=== PATIENT | female | born 1995 | race Two or more races ===

== ENCOUNTER 2025-08-18 20:54 | Observation (INO) | payer MEDICAID ==
[~2025-08-18] VITALS: Ht 160 cm; Wt 69.4 kg
--- NOTE | 2025-08-18 23:17 | DVHDS2 ---
Physician Discharge Progress N Final Diagnosis: False Labor Problems List: (1) 39 weeks gestation of (2) Primigravida (3) Irregular contractions Commentary: Commentary 08/18/2025 Subjective 30 y/o ,(0,0,0,0,) with IUP 36w0d presents to birthplace with contractions. LMP: 11/18/2024 SRAVAN: 08/25/2025 Reports normal movements, no LOF, or vaginal bleeding, no WOOD or vision changes. States she receives care with Dr Wheeler PMH: No h/o chronic condition, no surgery OB Hist: (0000) G#1 Current SOCIAL HISTORY: Denies any tobacco, alcohol or drug use. FAMILY HISTORY: Noncontributory. Objective REVIEW OF SYSTEM Constitutional: No symptom reported Ears, Nose, & Throat: No symptom reported Eyes: No symptom reported Pulmonary/Respiratory: No symptom reported Cardiovascular: No symptom reported Gastrointestinal: No symptom reported Genitourinary: No symptom reported Musculoskeletal: No symptom reported Skin: No symptom reported Psychiatric: No symptom reported Endocrine: No symptom reported Hematologic/Lymphatic: No symptom reported SVE : -3 Tracing FHR : 125 Varaibility : moderate Accels : 15 bpm X 15bpm Decel's : none noted Uterine: palpated soft and non tender Contractions : Every 6-10 min Assessment (0,0,0,0) 39w0d IUP Ambulate for one hour P.O hydration Reassessment @ 2300 SVE no cervical change Patient desires to go home Plan D/C to home in stable conditions False labor Discharge patient to home Follow up with your OB Provider within 24 hours Pt advised to go to ER if pain persists or increases in intensity 3rd trimester emergency S&S FMC, PTL & pre-eclampsia precautions reviewed with pt; advised to seek health care if any symptom including but not limited to any of the above. Condition on Discharge: Stable Disposition: Home Discharge Instructions: Diet: Regular Activity: No Restrictions, As Tolerated Medications: PNV Follow Up Care: Primary Care Provider: Dr Wheeler Discharge Statement: Discharge patient to home Follow up with your OB Provider within 24 hours Pt advised to go to ER if pain persists or increases in intensity Discharge Care Plan Problem Pain Goals Pain relieved, Reduction of pain Know Disease Process Initiate lifestyle change Remain free of infection Instructions Take Rx medications See pt D/C handouts Risk factors Visit Coding OBGYN Date of Service: Aug 18, 2025 Billing Provider: VIRGINIA RUIZ CNM TRAFFIC CLERK Common Visit Codes: [id number] CARE DISCHARGE, [id number] OBS CARE (HIGH) [facility] 23:17
== END 2025-08-18 23:11 | disposition home or self-care (01) ==
LOC: LDRP 20:54
PROVIDERS: ADMIT Obstetrics & Gynecology; ATTEND Obstetrics & Gynecology
DX: O62.9 Abnormality of forces of labor, unspecified (principal); Z3A.39 39 weeks gestation of pregnancy; Z79.899 Other long term (current) drug therapy; Z98.890 Other specified postprocedural states
CPT/HCPCS: 59025; 81002; 94760; G0378

== ENCOUNTER 2025-08-20 07:10 | Inpatient (IN) | payer MEDICAID ==
[~2025-08-20] VITALS: Ht 167.6 cm; Wt 69.4 kg
[2025-08-20] MEDS: LACTATED RINGER'S 1,000 ML IV ONE (08:15)
[2025-08-20 08:36] LABS: Hematocrit 37.2 % (36.0-46.0); Hemoglobin 12.6 g/dL (12.2-16.2); Mean Corpuscular Hemoglobin 28.4 pg (28.0-32.0); Mean Corpuscular Volume 84.2 fL (80.0-100.0); Nucleated Red Blood Cells % 0.2 %
[2025-08-20 08:40] LABS: Albumin 3.8 g/dL (3.2-4.8); Anion Gap 13 (5-15); BUN/Creatinine Ratio 11.9 (10.0-20.0); Calcium 9.2 mg/dL (8.7-10.4); Carbon Dioxide 20 mmol/L (20-31); Glucose 80 mg/dL (74-106); Potassium 3.7 mmol/L (3.5-5.1); Sodium 141 mmol/L (136-145); Total Protein 6.7 g/dL (5.7-8.2)
[2025-08-20 08:41] LABS: Bilirubin, Total 0.7 mg/dL (0.2-1.0); INR 0.92 (0.9-1.15); Partial Thromboplastin Time 25.8 SEC (24.5-34.5); Prothrombin Time 9.8 sec (9.3-11.8)
[2025-08-20 08:42] LABS: Alanine Aminotransferase 9 U/L (7-40); Alkaline Phosphatase 205 U/L (46-116); Blood Urea Nitrogen 7 mg/dL (9-23); Chloride 108 mmol/L (98-107)
--- NOTE | 2025-08-20 08:46 | DVH ---
BIOPHYSICAL PROFILE HISTORY: contractions TECHNIQUE: Multiple transabdominal real-time grayscale sonographic images through the gravid uterus of the fetus with duplex Doppler color flow and M-mode spectral analysis FINDINGS: BIOPHYSICAL PROFILE: breathing score: 2 movement score: 2 tone score: 2 Quantitative MARLENY score: 2 (MARLENY: 8 Cm.) Total score: 8 The cervix was not seen Single live fetus in cephalic presentation. heart rate 116 beats per minute. Grade II posterior placenta without previa or abruption IMPRESSION: Biophysical profile score: 8/8
[2025-08-20] MEDS: ROPIVACAINE HCL 100 ML ONE ×2 (09:26→16:51)
[2025-08-20] MEDS: PHISODERM TOP SOLN 240ML BTL TOP PRN (10:40)
[2025-08-20] MEDS: WITCH HAZEL-GLYCERIN PAD TOP PRN (10:40)
[2025-08-20] MEDS: DERMOPLAST 60ML BOTTLE TOP PRN (10:40)
[2025-08-20] MEDS: LACTATED RINGER'S 1,000 ML IV SCH (10:41)
--- NOTE | 2025-08-20 10:41 | DVHHP ---
ADMIT DATE: 08/20/2025 CHIEF COMPLAINT: Ruptured membrane. HISTORY OF PRESENT ILLNESS: The patient is a 30-year-old 1 para 0, with EDC 08/23/2025. Estimated gestational age of 39 weeks. Admitted for spontaneous rupture of membranes. The patient was noted to be 3 cm, 90%, -2. Shortly after, she became 5 cm, 100%, -2. Last EFW by Dr. Vitale was 2949 plus or minus 400. PAST MEDICAL HISTORY: None. PAST SURGICAL HISTORY: None. SOCIAL HISTORY: None. FAMILY HISTORY: None. OBSTETRIC AND GYNECOLOGIC HISTORY: Primi 1. ALLERGIES: No known drug allergies. REVIEW OF SYSTEMS: Consistent with HPI. PHYSICAL EXAMINATION: VITAL SIGNS: Stable, afebrile. HEENT: Within normal limits. CARDIOVASCULAR: Regular rate and rhythm. LUNGS: Clear to auscultation. BREASTS: Symmetrical, no masses. ABDOMEN: Gravid. Positive heart tones. PELVIC: 5 cm, 100%, -2. Grossly ruptured. Clear fluid. EXTREMITIES: No clubbing, cyanosis, or edema. IMPRESSION: Intrauterine at 39+ weeks with spontaneous rupture of membranes. PLAN: Informed consent obtained. Expectant vaginal delivery. May start Pitocin. Pema Wheeler DO MZ/EKT TID: [id number] RECEIPT: [id number]
[2025-08-20 11:06] LABS: Urine Protein, UAD Negative (Negative)
[2025-08-20 11:21] LABS: Amphetamine Screen, Urine Neg (NEGATIVE); Barbiturate Scree,Urine Neg (NEGATIVE); Benzodiazephine Screen, Urine Neg (NEGATIVE); Cannabinoid Screen, Urine Neg (NEGATIVE); Cocaine Screen, Urine Neg (NEGATIVE); Opiate Scree,Urine Neg (NEGATIVE); Phencyclidine Screen, Urine Neg (NEGATIVE)
--- NOTE | 2025-08-20 12:28 | DVHPN2 ---
Chief Complaints Patient reports: No new complaints Nursing reports: No new complaints Objective Medications Current Medications Medications (Trade) Dose Ordered Sig/Ab Route PRN Reason Start Time Stop Time Status Last Admin Benzocaine (Dermoplast) 1 applic PRN PRN TOP PERINEAL AREA DISCOMFORT 08/20/25 07:30 08/20/25 10:40 Lactated Ringer's 1,000 ml @ 125 mls/hr Q8H IV 08/20/25 07:30 08/20/25 10:41 Lidocaine HCl (Xylocaine) 20 ml ONCE PRN IJ PERINEAL AREA DISCOMFORT 08/20/25 07:30 Oxytocin 1,000 ml @ 6 ml/hr Q24H IV 08/20/25 10:30 Sodium Lauryl Sulfate (Phisoderm) 240 ml PRN PRN TOP PERINEAL AREA DISCOMFORT 08/20/25 07:30 08/20/25 10:40 Witch Shirley (Tucks) 1 pad PRN PRN TOP PERINEAL AREA DISCOMFORT 08/20/25 07:30 08/20/25 10:40 Others ve - 5cm/90/-1 Studies Laboratory Tests 08/20/25 08:00 Test 08/20/25 08:00 Range/Units Serum Glucose 80 74-106 mg/dL Ass/Plan Assessment iup at 39wks in labor gest thrombocytopenia Plan start ancef Visit Coding OBGYN Date of Service: Aug 20, 2025 Billing Provider: TAN RODRIGUEZ DO OUTREACH ASSOCIATE Common Visit Codes: [id number] OBS CARE (HIGH) OUTREACH ASSOCIATE Procedure Codes: 73398-10- NON-STRESS TEST TAN RODRIGUEZ DO Aug 20, 2025 12:28
[2025-08-20] MEDS: ceFAZolin 2 GM/D5W50ml 50 ML IV SCH (13:44)
[2025-08-20] MEDS: LACT. RINGERS/OXYTOCIN 20UNITS 1,000 ML IV SCH (14:07)
--- NOTE | 2025-08-20 15:25 | DVHPN2 ---
Chief Complaints Patient reports: No new complaints Nursing reports: No new complaints Objective Medications Current Medications Medications (Trade) Dose Ordered Sig/Ab Route PRN Reason Start Time Stop Time Status Last Admin Benzocaine (Dermoplast) 1 applic PRN PRN TOP PERINEAL AREA DISCOMFORT 08/20/25 07:30 08/20/25 10:40 Cefazolin Sodium/ Dextrose 50 ml @ 50 mls/hr Q8HR IV 08/20/25 14:00 08/20/25 13:44 Lactated Ringer's 1,000 ml @ 125 mls/hr Q8H IV 08/20/25 07:30 08/20/25 10:41 Lidocaine HCl (Xylocaine) 20 ml ONCE PRN IJ PERINEAL AREA DISCOMFORT 08/20/25 07:30 Oxytocin 1,000 ml @ 6 ml/hr Q24H IV 08/20/25 10:30 08/20/25 14:07 Sodium Lauryl Sulfate (Phisoderm) 240 ml PRN PRN TOP PERINEAL AREA DISCOMFORT 08/20/25 07:30 08/20/25 10:40 Lesly Watson ([place]) 1 pad PRN PRN TOP PERINEAL AREA DISCOMFORT 08/20/25 07:30 08/20/25 10:40 Others ve-8cm/80.-1 Studies Laboratory Tests 08/20/25 08:00 Test 08/20/25 08:00 Range/Units Serum Glucose 80 74-106 mg/dL Ass/Plan Assessment iup at 39wks in labor gest thrombocytopenia Plan cont [facility] Visit Coding OBGYN Date of Service: Aug 20, 2025 Billing Provider: TAN RODRIGUEZ DO CIAIO LUMITE INJECTOR Common Visit Codes: [id number] OBS CARE (HIGH) CIAIO LUMITE INJECTOR Procedure Codes: 61061-45- NON-STRESS TEST TAN RODRIGUEZ DO Aug 20, 2025 15:25
[2025-08-20] MEDS ORDERED: GENTAMICIN PER PHARMACY 0 ML IV SCH (17:15)
[2025-08-20] MEDS: ACETAMINOPHEN 325 MG TAB PO PRN (17:28)
[2025-08-20] MEDS ORDERED: GENTAMICIN SULFATE 320 MG in D5W 5% 100 ML IV ONE (17:30)
[2025-08-20] MEDS ORDERED: GENTAMICIN SULFATE 320 MG in D5W 5% 100 ML IV SCH (17:30)
[2025-08-20] MEDS: AMPICILLIN SOD 2GM INJ 2 GM in SODIUM CHL 0.9% 100 ML IV SCH (18:28)
[2025-08-20] MEDS: GENTAMICIN SULFATE 320 MG in D5W 5% 100 ML IV SCH (20:46)
[2025-08-21] MEDS ORDERED: ceFAZolin 2 GM/D5W50ml 50 ML IV ONE (00:15)
[2025-08-21] MEDS: METHYLERGONOVINE MALEATE 0.2 MG/ML AMP IM ONE ×3 (00:28→01:19)
[2025-08-21] MEDS: DIPHENOXYLATE W/ATROPINE 2.5 MG TAB ONE (00:41)
[2025-08-21] MEDS: ONDANSETRON HCL 4 MG/2 ML VIAL ONE (00:41)
--- NOTE | 2025-08-21 00:55 | LDN2 ---
Labor and Delivery Note Date 08/21/25 Age 30 1 Para 1 EDC 1-27 EGA 39wks Diagnosis labor,srom,39wks Vaginal Delivery: VTX Vacuum Assisted: Yes Placenta: Spontaneous Sex: Male Apgars 8-9 Nuchal Cord Transected: No Amniotic Fluid: Clear Anesthesia epidural Episiotomy: No Repaired with 2-0 chromic EBL 300ml Labs Blood Bank 08/20/25 08:00: Blood Type O POSITIVE Complications none Conditions stable Comments/Significant Med Dominick spec exam no cxal lac uterine atony noted which responded to hemobatex1,methergine and cytotec vaccum applied after permission obtanied due to poor pushing effort and delivered baby successfully Visit Coding OBGYN Date of Service: Aug 21, 2025 Billing Provider: TAN RODRIGUEZ DO BOOKMAKER'S CLERK Common Visit Codes: [id number] OBS CARE (HIGH) BOOKMAKER'S CLERK Procedure Codes: [id number] DELIVERY ONLY TAN RODRIGUEZ DO Aug 21, 2025 00:55
[2025-08-21] MEDS: DIPHENOXYLATE W/ATROPINE 2.5 MG TAB PO ONE (01:18)
[2025-08-21] MEDS: ONDANSETRON HCL 4 MG/2 ML VIAL IV PRN (01:18)
[2025-08-21] MEDS: LIDOCAINE 2%HCL (LOCAL ANESTH.) INJ 20ML MDV IJ PRN (01:21)
--- NOTE | 2025-08-21 01:23 | DVHPN2 ---
CNM Labor Progress Note Date and Time Seen Date Seen: Aug 20, 2025 Time Seen: 20:00 Subjective Subjective Comment *Late entry due to patient care. Mary Davila is a at 39w5d who is in the second stage of labor. She is comfortable with her epidural. [id number]: CNM and primary RN pushing with patient. She states she is not feeling the urge to push anymore. Decision made with patient to labor down to allow baby and Mom more time to rest [id number]: CNM and primary RN resume pushing with patient. See CPN for notes on position changes and interventions. Patient declares that she is done pushing and wants a section. Objective Vital Signs VSS. See CPN Monitoring Method Monitoring Method: External Heart Rate Heart Rate Baseline: 150 Heart Rate Variability: Moderate Presence of FHR Accelerations: Yes Presence of FHR Decelerations: Yes Heart Rate Type of Decel: Late Decelerations Comment on Trends or Patterns: cat 2 Contractions Contractions Frequency: Other (every 2-4 minutes) Contractions Intensity: Moderate Contractions Resting Tone: Relaxed Membranes Membranes: Ruptured Amniotic Fluid Color: Clear Vaginal Exam Vag Exam Deferred: No Medications Medications - Pitocin: Yes Medication - Epidural: Yes Lab Results Lab Results Vital Signs Date Time Temp Pulse Resp B/P (MAP) Pulse Ox O2 Delivery O2 Flow Rate FiO2 08/20/25 17:28 100.0 Current Medications Medications (Trade) Dose Ordered Sig/Ab Start Time Stop Time Status Last Admin Dose Admin Lactated Ringer's 1,000 ml @ 125 mls/hr Q8H 08/20/25 07:30 08/20/25 10:41 125 MLS/HR Lesly Watson (Tucks) 1 pad PRN PRN 08/20/25 07:30 08/20/25 10:40 1 PAD Sodium Lauryl Sulfate (Phisoderm) 240 ml PRN PRN 08/20/25 07:30 08/20/25 10:40 240 ML Benzocaine (Dermoplast) 1 applic PRN PRN 08/20/25 07:30 08/20/25 10:40 1 APPLIC Lidocaine HCl (Xylocaine) 20 ml ONCE PRN 08/20/25 07:30 Oxytocin 500 ml @ 999 mls/hr Q31M ONCE 08/20/25 07:30 08/20/25 08:04 DC Oxytocin 500 ml @ 125 mls/hr Q4H ONCE 08/20/25 08:00 08/20/25 11:59 DC Ephedrine Sulfate (ePHEDrine SULFATE) 10 mg PRN ONCE 08/20/25 08:15 08/20/25 08:16 DC Lactated Ringer's 1,000 ml @ 1,000 mls/hr Q1H ONCE 08/20/25 08:15 08/20/25 09:14 DC Oxytocin 1,000 ml @ 6 ml/hr Q24H 08/20/25 10:30 08/20/25 14:07 6 ML/HR Cefazolin Sodium/ Dextrose 50 ml @ 50 mls/hr Q8HR 08/20/25 14:00 08/20/25 20:57 DC 08/20/25 13:44 50 MLS/HR Acetaminophen (Tylenol Tablet) 650 mg Q4HP PRN 08/20/25 17:15 08/20/25 17:28 650 MG Ampicillin Sodium 2 gm/Sodium Chloride 100 ml @ 100 mls/hr Q6HR 08/20/25 18:00 08/21/25 01:02 100 MLS/HR Gentamicin Sulfate 0 ml @ 0 mls/hr PER PHARMACY 08/20/25 17:15 Gentamicin Sulfate 320 mg/ Dextrose 108 ml @ 100 mls/hr Q24H ONCE 08/20/25 17:30 08/20/25 17:29 DC Gentamicin Sulfate 320 mg/ Dextrose 108 ml @ 100 mls/hr Q24H 08/20/25 17:30 08/20/25 17:30 DC Gentamicin Sulfate 320 mg/ Dextrose 108 ml @ 100 mls/hr Q24H 08/20/25 18:00 08/20/25 20:46 100 MLS/HR Cefazolin Sodium/ Dextrose 50 ml @ 50 mls/hr ONCE ONCE 08/21/25 00:15 08/21/25 01:14 Methylergonovine Maleate (Methergine) 0.2 mg ONCE ONCE 08/21/25 01:00 08/21/25 01:05 DC Diphenoxylate HCl/ Atropine (Lomotil Tablet) 10 mg ONCE ONCE 08/21/25 01:00 08/21/25 01:05 DC Ondansetron HCl (Zofran) 4 mg Q4HP PRN 08/21/25 01:00 Carboprost Tromethamine (Hemabate) 250 mcg ONCE ONCE 08/21/25 01:00 08/21/25 01:05 NC Laboratory Tests Test 08/20/25 09:40 08/20/25 08:00 Range/Units Urine Color Light-yellow Yellow Urine Clarity Clear Clear Urine pH 7.0 5.0-9.0 Urine Specific Alsey 1.014 1.001-1.035 Urine Protein Negative Negative Urine Ketones 1+ H Negative Urine Blood Negative Negative /uL Urine Nitrite Negative Negative Urine Bilirubin Negative Negative Urine Urobilinogen Normal Negative mg/dL Urine Leukocyte Esterase Negative Negative /uL Urine RBC 1 0 - 4 /hpf Urine Microscopic WBC 1 0-5 /HPF Urine Squamous Epithelial Cells None seen <5 /hpf Urine Bacteria None seen None Seen /hpf Urine Glucose Normal Normal mg/dL Urine Opiates Screen Neg NEGATIVE Urine Fentanyl Screen Neg NEGATIVE Urine Barbiturates Screen Neg NEGATIVE Urine Phencyclidine Screen Neg NEGATIVE Urine Amphetamines Screen Neg NEGATIVE Urine Benzodiazepines Screen Neg NEGATIVE Urine Cocaine Screen Neg NEGATIVE Urine Cannabinoids Screen Neg NEGATIVE White Blood Count 6.6 4.4-10.8 10^3/uL Red Blood Count 4.41 4.0-5.20 10^6/uL Hemoglobin 12.6 12.2-16.2 g/dL Hematocrit 37.2 36.0-46.0 % Mean Corpuscular Volume 84.2 80.0-100.0 fL Mean Corpuscular Hemoglobin 28.4 28.0-32.0 pg Mean Corpuscular Hemoglobin Concent 33.8 32.0-36.0 g/dL Red Cell Distribution Width 13.6 11.8-14.3 % Platelet Count 117 L 140-450 10^3/uL Mean Platelet Volume 11.1 H 6.9-10.8 fL Neutrophils (%) (Auto) 49.7 37.0-80.0 % Lymphocytes (%) (Auto) 40.3 10.0-50.0 % Monocytes (%) (Auto) 9.0 0.0-12.0 % Eosinophils (%) (Auto) 0.6 0.0-7.0 % Basophils (%) (Auto) 0.4 0.0-2.0 % Neutrophils # (Auto) 3.3 1.6-8.6 10 ^3/uL Lymphocytes # (Auto) 2.7 0.4-5.4 10 ^3/uL Monocytes # (Auto) 0.6 0-1.3 10 ^3/uL Eosinophils # (Auto) 0 0-0.8 10 ^3/uL Basophils # (Auto) 0 0-0.2 10 ^3/uL Nucleated Red Blood Cells 0.2 % Prothrombin Time 9.8 9.3-11.8 sec Prothrombin Time INR 0.92 0.9-1.15 Activated Partial Thromboplast Time 25.8 24.5-34.5 SEC Sodium Level 141 136-145 mmol/L Potassium Level 3.7 3.5-5.1 mmol/L Chloride Level 108 H 98-107 mmol/L Carbon Dioxide Level 20 20-31 mmol/L Anion Gap 13 5-15 Blood Urea Nitrogen 7 L 9-23 mg/dL Creatinine 0.59 0.550-1.02 mg/dL Glomerular Filtration Rate Calc 125 >90 mL/min BUN/Creatinine Ratio 11.9 10.0-20.0 Serum Glucose 80 74-106 mg/dL Calcium Level 9.2 8.7-10.4 mg/dL Total Bilirubin 0.7 0.2-1.0 mg/dL Aspartate Amino Transferase (AST) 17 13-40 U/L Alanine Aminotransferase (ALT) 9 7-40 U/L Alkaline Phosphatase 205 H 46-116 U/L Total Protein 6.7 5.7-8.2 g/dL Albumin 3.8 3.2-4.8 g/dL Treponema pallidum Antibody Non-reactive Negative Hepatitis C Antibody Negative Negative Assessment Assessment -30 yo with IUP at 39w5d -SROM, on prophylactic antibiotics -Second stage of labor -GBS negative -Category 2 tracing Plan Plan -Called Dr Wheeler at 0000 on 08/21/25 to come in and evaluate station and maternal pushing effort. Discussed the possibility of VAVD if patient is willing to try pushing again. Order from Liam to call in the OR team to have them ready -Pitocin turned off -Reposition patient as needed for tracing Plan discussed with: Patient, Spouse, Other (mother) Visit Coding OBGYN Date of Service: Aug 20, 2025 Billing Provider: ARI PERDOMO CNM WHIRLEY OPERATOR Common Visit Codes: [id number] INP/OBS CARE(HIGH) ARI PERDOMO CNM Aug 21, 2025 01:23
[2025-08-21] MEDS: CARBOPROST TROMETHAMINE 250 MCG/1ML VIAL IM ONE ×2 (01:24→01:28)
[2025-08-21] MEDS: LACT. RINGERS/OXYTOCIN 20UNITS 500 ML IV ONE ×2 (01:29→01:30)
[2025-08-21] MEDS ORDERED: ONDANSETRON ODT 4 MG TAB PO PRN (02:00)
[2025-08-21] MEDS: ACETAMINOPHEN 325 MG TAB PO SCH (02:00)
[2025-08-21] MEDS: AMMONIA 0.33 ML INHALANT IN ONE (03:03)
[2025-08-21 03:15] VITALS: BP 109/57; PULSE 87; RESP 18; TEMP 100.2; O2SAT 98
[2025-08-21] MEDS: IBUPROFEN 600 MG TAB PO SCH (04:47)
[2025-08-21 07:00] VITALS: BP 102/58; PULSE 74; RESP 18; TEMP 98.8; O2SAT 96
--- NOTE | 2025-08-21 07:14 | DVHPN2 ---
Progress Note Date Seen: Aug 21, 2025 Subjective SUBJECTIVE -Lochia minimal -Tolerating regular diet well. -Pain relieved with oral medication PRN -Ambulating and voiding well w/o feeling lightheaded or dizzy. -Passing flatus but no BM yet -Breast feeding. vital signs Vital Sign Date Time Temp Pulse Resp B/P (MAP) Pulse Ox O2 Delivery O2 Flow Rate FiO2 08/21/25 03:23 Room Air 08/21/25 03:15 100.2 87 18 109/57 (74) 98 100.2 Total Intake and Output 08/20/25 08/20/25 08/21/25 15:00 23:00 07:00 Output Total 350 ml Balance -350 ml medications Current Medications Medications Dose Ordered Sig/Ab Route Start Time Stop Time Status Last Admin Dose Admin Lactated Ringer's 1,000 ml @ 125 mls/hr Q8H IV 08/20/25 07:30 08/20/25 10:41 125 MLS/HR Lesly Watson 1 pad PRN PRN TOP 08/20/25 07:30 08/20/25 10:40 1 PAD Sodium Lauryl Sulfate 240 ml PRN PRN TOP 08/20/25 07:30 08/20/25 10:40 240 ML Benzocaine 1 applic PRN PRN TOP 08/20/25 07:30 08/20/25 10:40 1 APPLIC Lidocaine HCl 20 ml ONCE PRN IJ 08/20/25 07:30 08/21/25 01:21 20 ML Oxytocin 1,000 ml @ 6 ml/hr Q24H IV 08/20/25 10:30 08/20/25 14:07 6 ML/HR Acetaminophen 650 mg Q4HP PRN PO 08/20/25 17:15 08/20/25 17:28 650 MG Ampicillin Sodium 2 gm/Sodium Chloride 100 ml @ 100 mls/hr Q6HR IV 08/20/25 18:00 08/21/25 01:02 100 MLS/HR Gentamicin Sulfate 0 ml @ 0 mls/hr PER PHARMACY IV 08/20/25 17:15 Gentamicin Sulfate 320 mg/ Dextrose 108 ml @ 100 mls/hr Q24H IV 08/20/25 18:00 08/20/25 20:46 100 MLS/HR Ondansetron HCl 4 mg Q4HP PRN IV 08/21/25 01:00 08/21/25 01:18 4 MG Ibuprofen 600 mg Q6HR PO 08/21/25 05:00 08/21/25 04:47 600 MG Acetaminophen 650 mg Q4HR PO 08/21/25 02:00 Ondansetron HCl 4 mg Q4HPRN PRN PO 08/21/25 02:00 Docusate Sodium 200 mg HS PO 08/21/25 22:00 laboratory and microbiology Laboratory Tests 08/20/25 08:00 Test 08/20/25 08:00 Range/Units Serum Glucose 80 74-106 mg/dL Objective OBJECTIVE -A&O x4. No apparent distress. Affect appropriate -Afebrile, VSS -Chest: heart and lung sounds normal. -Breasts: Nipples intact w/o cracks or soreness -Abdomen: normal BS, soft, non-tender, no rebound or guarding, fundus firm @ U- 1, lochia minimal -Perineum: no edema, or erythema -Extremities: no edema or tenderness Problems(with codes): (1) Vacuum-assisted vaginal delivery Assessment/Plan ASSESSMENT -30 yo now ppd #0 s/p VAVD doing well. -Blood Type: O+ -Breast feeding -Rubella Immune PLAN -Continue pain management with oral medications as previously ordered -Increase fluid intake and fiber in diet to promote regular bowel movements, Laxative PRN -Encouraged patient to continue taking vitamin and iron -Continue routine care Plan discussed with: Patient, Other (mother) Visit Coding OBGYN Date of Service: Aug 21, 2025 Billing Provider: ARI PERDOMO CNM MARSHMALLOW MAKER Common Visit Codes: [id number] INP/OBS CARE(MOD) ARI PERDOMO CNM Aug 21, 2025 07:14
[2025-08-21 11:00] VITALS: BP 99/57; PULSE 86; RESP 18; TEMP 98.4; O2SAT 96
[2025-08-21 15:00] VITALS: BP 102/60; PULSE 86; RESP 18; TEMP 99; O2SAT 96
[2025-08-21 18:30] VITALS: BP 127/76; PULSE 74; RESP 18; TEMP 98.8; O2SAT 96
[2025-08-21] MEDS ORDERED: ACETAMINOPHEN 325 MG TAB PO PRN ×2 (19:00→21:00)
[2025-08-21] MEDS ORDERED: IBUPROFEN 600 MG TAB PO PRN ×2 (19:00→21:00)
[2025-08-21] MEDS: DOCUSATE SOD 100 MG CAP PO SCH (22:00)
--- NOTE | 2025-08-22 05:21 | DVHPN2 ---
Chief Complaints Patient reports: No new complaints Nursing reports: No new complaints Objective Vitals Vital Signs Date Time Temp Pulse Resp B/P (MAP) Pulse Ox O2 Delivery O2 Flow Rate FiO2 08/21/25 18:30 74 18 96 Room Air 08/21/25 18:30 98.8 127/76 (93) 98.8 Medications Current Medications Medications (Trade) Dose Ordered Sig/Ab Route PRN Reason Start Time Stop Time Status Last Admin Acetaminophen (Tylenol Tablet) 650 mg Q4HP PRN PO MILD PAIN (1-3 PAIN SCALE) 08/21/25 21:00 Acetaminophen (Tylenol Tablet) 650 mg Q4HR PRN PO PAIN SCALE 1-3 OR TEMP>100.4 08/21/25 19:00 Cancel Docusate Sodium (Colace Capsule) 200 mg HS PO 08/21/25 22:00 Ibuprofen (Motrin Tablet) 600 mg Q6HP PRN PO MODERATE PAIN (4-6 PAIN SCALE) 08/21/25 21:00 Ibuprofen (Motrin Tablet) 600 mg Q6HR PRN PO PAIN SCALE 1 THRU 6 08/21/25 19:00 Cancel General: Normal Lungs: Normal Cardiovascular: Normal Abdominal: Soft Extremities: Normal Studies Laboratory Tests 08/20/25 08:00 Test 08/20/25 08:00 Range/Units Serum Glucose 80 74-106 mg/dL Ass/Plan Assessment S/P VACCUM DEL Plan DC HOME FU IN 2WKS Visit Coding OBGYN Date of Service: Aug 22, 2025 Billing Provider: TAN RODRIGUEZ DO MEDICINE TEACHER Common Visit Codes: [id number] INP/OBS CARE (HIGH) TAN RODRIGUEZ DO Aug 22, 2025 05:21
--- NOTE | 2025-08-22 05:24 | DVHDS2 ---
Obstetrics Discharge Summary Obstetrics Discharge Summary Date of Admission: Aug 20, 2025 Date of Discharge: Aug 22, 2025 Reason For Admission: Onset of Labor Procedures: NST Intrapartum Procedures: Spontaneous vaginal deliv, Vacuum Extraction Operative Complicat: None Discharge Diagnosis: Term -Delivered Discharge Information: Activity (Other), Diet (Routine), Medications (Name:), Instructions (Routine), Discharge to (Home), Discarge date (08-22) Visit Coding OBGYN Date of Service: Aug 22, 2025 Billing Provider: TAN RODRIGUEZ DO BIZTALK SOFTWARE DEVELOPER Common Visit Codes: [id number] INP/OBS CARE (HIGH) BIZTALK SOFTWARE DEVELOPER Consultation Codes: [id number] CONSULT <55MIN BIZTALK SOFTWARE DEVELOPER Procedure Codes: 07787-[id number] DELIVERY ONLY TAN RODRIGUEZ DO Aug 22, 2025 05:24
[2025-08-22 07:00] VITALS: BP 101/59; PULSE 71; RESP 16; TEMP 98.3; O2SAT 97
[2025-08-22] MEDS ORDERED: TRANEXAMIC ACID 1,000 mg/10ml INJ VIAL IV ONE (11:59)
== END 2025-08-22 13:22 | disposition home or self-care (01) | DRG 560 ==
LOC: LDRP 07:10 → OBSVTOIN 07:28 → LDRP 07:29
PROVIDERS: ADMIT Obstetrics & Gynecology; ATTEND Obstetrics & Gynecology
PROC: 10D07Z6 Extraction of Products of Conception, Vacuum, Via Natural or Artificial Opening (ICD-10-PCS; principal; 2025-08-21)
PROC: 3E0R3BZ Introduction of Anesthetic Agent into Spinal Canal, Percutaneous Approach (ICD-10-PCS; 2025-08-21)
PROC: 00HU33Z Insertion of Infusion Device into Spinal Canal, Percutaneous Approach (ICD-10-PCS; 2025-08-21)
DX: O99.12 Other diseases of the blood and blood-forming organs and certain disorders involving the immune mechanism complicating childbirth (principal); Z37.0 Single live birth; D69.6 Thrombocytopenia, unspecified; Z3A.39 39 weeks gestation of pregnancy
CPT/HCPCS: 36415; 59025; 59409; 62282; 76819; 80053; 80307; 81001; 81002; 85025; 85610; 85730; 86780; 86803; 86850; 86900; 86901; 94760; 94762; 96361; 96365; 96366; 96372; 96374; G0378; J2405; J2590; J7060